=== PATIENT | male | born 1995 | race Caucasian/White ===

== ENCOUNTER 2018-04-02 23:58 | Emergency (ER) | payer MEDICAID ==
[2018-04-03 00:26] LABS: URINE MICROSCOPIC INDICATED? YES; URINE SOURCE RANDOM
[2018-04-03 00:28] LABS: % BASOPHILS 0.3 % (0.0-2.0); % LYMPHOCYTES 30.4 % (20.0-50.0); % MONOCYTES 8.7 % (2.0-10.0); % NEUTROPHILS 59.6 % (40.0-80.0); EOSINOPHILE ABSOLUTE 0.1 Th/cmm (0.1-0.4); HEMATOCRIT 46.5 % (41.0-60); LYMPHOCYTE ABSOLUTE 3.4 Th/cmm (1.5-3.0); MEAN CORPUSCULAR HGB CONC 34.4 pg (28.0-36.0); MEAN PLATELET VOLUME 7.3 fl; NEUTROPHILE ABSOLUTE 6.7 Th/cmm (1.8-8.0); PLATELET COUNT 264 Th/cmm (150-400); WHITE BLOOD COUNT 11.2 Th/cmm (4.8-10.8)
[2018-04-03] MEDS ORDERED: Sodium Chloride 0.9% 1,000 ML IV SCH (00:30)
[2018-04-03 00:39] LABS: URINE BILIRUBIN NEGATIVE (NEGATIVE); URINE BLOOD NEGATIVE (NEGATIVE); URINE GLUCOSE (UA) NEGATIVE (NEGATIVE); URINE KETONE NEGATIVE (NEGATIVE); URINE LEUKOCYTE ESTERASE NEGATIVE (NEGATIVE); URINE NITRATE NEGATIVE (NEGATIVE); URINE PROTEIN NEGATIVE (NEGATIVE)
--- NOTE | 2018-04-03 00:54 | ED Physician Chart ---
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 PAIN MODERATE SHARP 7/1O NO ASSOC FEVER Allergies:: Allergies Allergy/AdvReac Type Severity Reaction Status Date / Time No Known Allergies Allergy Verified 04/03/18 00:16 Vitals:: Vital Signs - 8 hr 04/03/18 00:00 Temp 99.2 F HR 77 RR 18 BP 149/97 O2 Sat % 96 ED Review of Systems - Review of Systems General/Constitutional: No fever, No chills, No weight loss, No weakness, No diaphoresis, No edema, No loss of appetite Skin: No skin lesions, No rash, No bruising Head: No headache, No light-headedness Eyes: No loss of vision, No pain, No diplopia ENT: No earache, No nasal drainage, No sore throat, No tinnitus Neck: No neck pain, No swelling, No thyromegaly, No stiffness, No mass noted Cardio Vascular: No chest pain, No palpitations, No PND, No orthopnea, No edema Pulmonary: No SOB, No cough, No sputum, No wheezing GI: Nausea, Diarrhea G/U: No dysuria, No frequency, No hematuria Musculoskeletal: No bone or joint pain, No back pain, No muscle pain Endocrine: No polyuria, No polydipsia Psychiatric: No prior psych history, No depression, No anxiety, No suicidal ideation Hematopoietic: No bruising, No lymphadenopathy Allergic/Immuno: No urticaria, No angioedema Neurological: Syncope Family Medical History - Family Member Mother Ethnicity: Living Status: Still Living Other Medical History: none ED Physical Exam - Physical Examination General/Constitutional: Awake, Well-developed, well-nourished, Alert, No distress, GCS 15, Non-toxic appearing, Ambulatory Head: Atraumatic Eyes: Lids, conjuctiva normal, PERRL, EOMI Skin: Nl inspection, No rash, No skin lesions, No ecchymosis, Well hydrated, No lymphadenopathy ENMT: External ears, nose nl, Nasal exam nl, Lips, teeth, gums nl Neck: Nontender, Full ROM w/o pain, No JVD, No nuchal rigidity, No bruit, No mass, No stridor Respiratory: Nl effort/Exclusion, Clear to Auscultation, No Wheeze/Rhonchi/Rales Cardio Vascular: RRR, No murmur, gallop, rubs, NL S1 S2 GI: No tenderness/rebounding/guarding, No organomegaly, No hernia, Normal BS's, Nondistended, No mass/bruits, No McBurney tenderness : No CVA tenderness Extremities: No tenderness or effusion, Full ROM, normal strength in all extremities, No edema, Normal digits & nails Neuro/Psych: Alert/oriented, DTR's symmetric, Normal sensory exam, Normal motor strength, Judgement/insight normal, Mood normal, Normal gait, No focal deficits Misc: Normal back, No paraspinal tenderness ED Labs/Radiology/EKG Results - Lab Results Results: Laboratory Tests 04/03/18 00:20 WBC 11.2 H RBC 5.00 Hgb 16.0 Hct 46.5 MCV 93.0 MCH 32.0 H MCHC Differential 34.4 RDW 12.0 Plt Count 264 MPV 7.3 Neutrophils % 59.6 Lymphocytes % 30.4 Monocytes % 8.7 Eosinophils % 1.0 Basophils % 0.3 ED Assessment - Assessment General Assessment: ABD PAIN ED Septic Shock - . Is Septic Shock (SBP<90, OR Lactate>4 mmol\L) present?: No - <6hrs of presentation: Vital Signs: Vital Signs - 8 hr 04/03/18 00:00 Temp 99.2 F HR 77 RR 18 BP 149/97 O2 Sat % 96 ED Reassessment (Disposition) - Diagnosis Diagnosis:: GASTROENTERITIS - Aftercare/Follow up Instructions Aftercare/Follow-Up Instructions:: Counseled pt regarding lab results/diagnosis & need follow up - Patient Disposition Discharge/Transfer:: Home Condition at Disposition:: Stable
[2018-04-03 00:58] LABS: URINE CLARITY CLEAR (CLEAR); URINE COLOR YELLOW
[2018-04-03 00:59] LABS: URINE BACTERIA OCCASIONAL /hpf (NONE SEEN); URINE EPITHELIAL CELLS RARE /lpf (FEW); URINE RBC 0-2 /hpf (0-5); URINE WBC 0-2 /hpf (0-5)
[2018-04-03 01:10] LABS: ALB/GLOB RATIO 1.9 (1.0-1.8); ALKALINE PHOSPHATASE 54 U/L (34-104); ANION GAP 13.1 (7.0-16.0); BILIRUBIN,TOTAL 0.7 mg/dL (0.3-1.0); BUN - UREA NITROGEN 15 mg/dL (7-25); CALCIUM SERUM 10.2 mg/dL (8.6-10.3); CARBON DIOXIDE 23.7 mEq/L (21.0-31.0); CHLORIDE 105 mEq/L (98-107); CREATININE - SERUM 0.9 mg/dL (0.7-1.3); GFR AFRICAN-AMERICAN > 60.0 ml/min (>90); GFR NON AFRICAN-AMERICAN > 60.0 ml/min; GLUCOSE 130 mg/dL (70-105); LIPASE 11 U/L (11-82); POTASSIUM SERUM 3.8 mEq/L (3.5-5.1); SGOT 18 U/L (13-39); SGPT/ALT 16 U/L (7-52); SODIUM SERUM 138 mEq/L (136-145); TOTAL PROTEIN,SERUM 7.7 gm/dL (6.0-8.3)
--- NOTE | 2018-04-03 08:51 | Diagnostic Imaging Report ---
CT abdomen and pelvis without intravenous contrast Indication: Abdominal pain Comparison: None, Technique: Axial images were obtained from the lung bases to the bilateral proximal femurs without IV contrast. Coronal reconstructions were made. total DLP: 475, CTDI9.6 FINDINGS: hypoventilatory and atelectatic changes of the lung bases are noted. Assessment of the solid organs is limited due to lack of IV contrast. No evidence of focal hepatic, or splenic lesions. There is minimal haziness of the peripancreatic fat planes. No discrete focal lesions. No focal adrenal lesions. No evidence of hydronephrosis or nephrolithiasis. Moderate stool is seen throughout the colon. No evidence of bowel obstruction. No evidence of appendicitis. No evidence of free air or free fluid. Multiple borderline prominent mesenteric right lower quadrant lymph nodes are noted. There is borderline prominence of the urinary bladder wall. Degenerative changes spine are noted. There appears to be transitional vertebral body anatomy. IMPRESSION: Minimal haziness and inflammatory change surrounding the pancreas. Please correlate clinically for pancreatitis. No evidence of free fluid. Mildly borderline prominent mesenteric lymph nodes, nonspecific and possibly reactive. Borderline prominent of the urinary bladder wall which may be due to underdistention versus less likely inflammatory process. Please correlate with clinical findings.
== END 2018-04-03 03:22 | disposition home or self-care (01) ==
LOC: ER 23:58
DX: K52.9 Noninfective gastroenteritis and colitis, unspecified (principal)
CPT/HCPCS: 99285; 96374; 36415; 85025; 81001; 83690; 80053; 74176; J1885; J7030